=== PATIENT | male | born 1995 | race Caucasian/White ===

== ENCOUNTER 2017-04-15 09:46 | Day surgery (SDC) | payer OTHER ==
--- NOTE | 2017-04-14 12:42 | RADIOLOGY REPORT (SQ) ---
EXAM DESCRIPTION: CHEST PA/LATERAL COMPLETED DATE/TIME: 04/14/2017 12:04 pm REASON FOR STUDY: PRE OP COMPARISON: None. EXAM PARAMETERS: NUMBER OF VIEWS: two views TECHNIQUE: Digital Frontal and Lateral radiographic views of the chest acquired. RADIATION DOSE: NA LIMITATIONS: none FINDINGS: LUNGS AND PLEURA: No opacities, masses or pneumothorax. No pleural effusion. MEDIASTINUM AND HILAR STRUCTURES: No masses or contour abnormalities. HEART AND VASCULAR STRUCTURES: Heart normal size. No evidence for failure. BONES: No acute findings. HARDWARE: None in the chest. OTHER: No other significant finding. IMPRESSION: NO SIGNIFICANT RADIOGRAPHIC FINDING IN THE CHEST. TECHNICAL DOCUMENTATION: JOB ID: [id number] [employer]- All Rights Reserved
[2017-04-14 13:00] LABS: APPEARANCE,URINE CLEAR; BILIRUBIN,URINE NEGATIVE (NEGATIVE); GLUCOSE, URINE NEGATIVE (NEGATIVE); KETONES,URINE NEGATIVE (NEGATIVE); LEUKOCYTE ESTERASE,URINE NEGATIVE (NEGATIVE); NITRITE,URINE NEGATIVE (NEGATIVE); PROTEIN,URINE NEGATIVE (NEGATIVE); URINE SPECIFIC GRAVITY 1.015; UROBILINOGEN,URINE NEGATIVE mg/dL (<2.0)
[2017-04-14 13:11] LABS: ABSOLUTE BASOPHILS # (AUTO) 0.1 10^3/uL (0.0-0.2); ABSOLUTE EOSINOPHILS # (AUTO) 0.2 10^3/uL (0.0-0.6); ABSOLUTE LYMPHOCYTES (AUTO) 2.1 10^3/uL (0.5-4.7); ABSOLUTE MONOCYTES (AUTO) 0.6 10^3/uL (0.1-1.4); ABSOLUTE NEUT (AUTO) 5.8 10^3/uL (1.7-8.2); BASOPHILS % (AUTO) 0.9 % (0-2); EOSINOPHILS % (AUTO) 2.5 % (0-6); HEMATOCRIT 46.7 % (37.9-51.0); HEMOGLOBIN 15.6 g/dL (13.5-17.0); HGB HCT DIFFERENCE 0.1; LYMPHOCYTES % (AUTO) 23.9 % (13-45); MEAN CORPUSCULAR HEMOGLOBIN 30.2 pg (27.0-33.4); MEAN CORPUSCULAR HGB CONC 33.4 g/dL (32.0-36.0); MEAN CORPUSCULAR VOLUME 90 fl (80-97); MONOCYTES % (AUTO) 7.3 % (3-13); RED BLOOD COUNT 5.17 10^6/uL (4.35-5.55); RED CELL DISTRIBUTION WIDTH 13.1 % (11.5-14.0); SEGMENTED NEUTROPHILS % (AUTO) 65.4 % (42-78); WHITE BLOOD COUNT 8.8 10^3/uL (4.0-10.5)
[2017-04-14 13:39] LABS: ANION GAP 12 (5-19); BLOOD UREA NITROGEN 13 mg/dL (7-20); CARBON DIOXIDE 27 mmol/L (22-30); CHLORIDE 103 mmol/L (98-107); CREATININE RESULT 0.78 mg/dL (0.52-1.25); GLUCOSE 76 mg/dL (75-110); POTASSIUM 4.6 mmol/L (3.6-5.0); SODIUM 141.8 mmol/L (137-145)
--- NOTE | 2017-04-14 17:55 | EKG REPORT ---
SEVERITY:- NORMAL ECG - SINUS RHYTHM : Confirmed by: Elsa Diehl MD 14-Apr-2017 17:54:59
[~2017-04-15 09:46] MED LIST: BUPIVACAINE HCL 0.5 % INJ/PF 30 ML SDV ONE; CEFAZOLIN 2 GM/D5W RTU 2 GM/50 ML RTUPB IV PRN; LACTATED RINGERS 1000 ML IV PRN
[2017-04-15] MEDS ORDERED: ROCURONIUM BROMIDE INJ 50 MG/5 ML VIAL IV ONE (10:09)
[2017-04-15] MEDS ORDERED: ONDANSETRON HCL INJ/PF 4 MG/2 ML SDV ONE (10:09)
[2017-04-15] MEDS ORDERED: LIDOCAINE 2% INJ-PF (20 MG/ML) 10 ML AMPUL ONE (10:09)
[2017-04-15] MEDS ORDERED: METOCLOPRAMIDE HCL INJ/PF 10 MG/2 ML SDV ONE (10:09)
[2017-04-15] MEDS ORDERED: NEOSTIGMINE METHYLSULFATE 10 MG/10 ML VIAL ONE (10:09)
[2017-04-15] MEDS ORDERED: GLYCOPYRROLATE INJ 0.4 MG/2 ML VIAL ONE (10:09)
[2017-04-15] MEDS ORDERED: SUCCINYLCHOLINE CHLORIDE INJ 200 MG/10 ML VIAL ONE (10:09)
[2017-04-15] MEDS ORDERED: ALBUTEROL SULFATE 0.083% NEB 2.5 MG/3 ML AMPUL NEB ONE (10:40)
[2017-04-15] MEDS ORDERED: RINGERS SOLUTION,LACTATED 500 ML IV ONE (11:00)
[2017-04-15] MEDS ORDERED: MIDAZOLAM 2 MG/2 ML INJ ONE (12:49)
[2017-04-15] MEDS ORDERED: PROPOFOL INJ 200 MG/20 ML VIAL IV ONE (12:49)
[2017-04-15] MEDS ORDERED: IBUPROFEN INJ 800 MG/8 ML VIAL IV ONE (12:49)
[2017-04-15] MEDS ORDERED: FENTANYL CITRATE INJ/PF 250 MCG/5 ML AMPULE ONE (12:49)
[2017-04-15] MEDS ORDERED: MORPHINE SULFATE 10 MG/ML INJ ONE (12:50)
[2017-04-15] MEDS ORDERED: FENTANYL CITRATE INJ/PF 100 MCG/2 ML AMPUL IV PRN ×3 (13:28)
[2017-04-15] MEDS ORDERED: MORPHINE SULFATE 10 MG/ML INJ IV PRN (13:28)
[2017-04-15] MEDS ORDERED: PROMETHAZINE HCL INJ 25 MG/1 ML VIAL IV PRN ×2 (13:28)
[2017-04-15] MEDS ORDERED: MEPERIDINE HCL/PF INJ 25 MG/1 ML DISP.SYRIN IV PRN (13:28)
[2017-04-15] MEDS ORDERED: DIPHENHYDRAMINE HCL 50 MG/ML VIAL IV PRN (13:28)
[2017-04-15] MEDS ORDERED: ONDANSETRON HCL INJ/PF 4 MG/2 ML SDV IV PRN (13:28)
[2017-04-15] MEDS ORDERED: OXYCODONE-ACETAMINOPHEN 5-325 MG TABLET PO PRN ×2 (13:28)
--- NOTE | 2017-04-15 15:00 | Operative Report ---
Operative Report DATE OF SURGERY: 04/15/17 PREOPERATIVE DIAGNOSIS: Left Index Finger Digital Nerve Laceration POSTOPERATIVE DIAGNOSIS: Same OPERATION: Left Index Radial Digital Nerve Repair Utilizing Nerve Allograft SURGEON: ALINA LINK ANESTHESIA: GA COMPLICATIONS: None ESTIMATED BLOOD LOSS: minimal INTRAOPERATIVE FINDINGS: 15 mm nerve Radial digital nerve index finger PROCEDURE: Indication for above procedure: 21-year-old male he inadvertently sustained a small laceration on the palm of his hand. Since the date of injury continue to have numbness and tingling. He subsequently followed up at my office at which point he had findings such as a Tinel's and a numbness which indicated possible digital nerve injury. At that point we discussed treatment options including observation versus operative intervention. After discussing risks and benefits of both the decision was made to proceed with operative treatment. Procedure In Detail: Patient was seen and evaluated in the preoperative holding area. The left upper extremity was initialized and marked. Patient received 2g of Ancef IV for bacterial prophylaxis. Patient was taken back to the operative room where transferred to the operative table and placed under general anesthesia. Once they were adequately anesthetized a nonsterile tourniquet was placed on the upper extremity. A surgical team debriefing was performed ensuring all instrumentation was available, the surgical procedure was discussed with possible concerns reviewed. The upper extremity was prepped with chlorhexidine and alcohol and draped in a sterile fashion. A timeout was done identifying correct patient, procedure and extremity everyone in attendance agree with this and verbalized no concerns. The extremity was exsanguinated the tourniquet was inflated to 250 mmHg. Kimberly's shaped skin incision was made along patient's previous laceration proximally and distally. Blunt dissection was performed to the soft tissue. A peripheral vasculature was carefully coagulated bipolar cautery. The radial digital nerve of the index finger was then identified. It was split into 2 branches and a neuroma was identified. The skin was retracted and secured with a 4-0 nylon suture. I then proceeded with exploration of the distal stump. The distal stump was identified deep to Melvin's ligament which was released the neurovascular bundle was identified. Radial digital artery remains patent. I then carefully debrided the distal aspect of the radial digital nerve of the index finger. The microscope was then utilized to further evaluate fascicles of the proximal distal aspect of the radial digital nerve. Appropriate resection was completed confirming normal-appearing fascicles proximally and distally. The nerve measured 3 mm in diameter with a nerve gap of 15 mm. A 3-4 x 30 mm AVANCE nerve graft was then opened and placed in saline on the back table. A 3 mm x 15 mm nerve connector was also open and placed in saline. The nerve connector was split and placed onto the nerve graft to allow for protection of the repair. Under microscope magnification I then secured the proximal aspect of my nerve graft and the proximal nerve stump with 8-0 nylon suture aligning these fascicles. I then secured the nerve graft to the distal aspect of my digital nerve with an additional two sutures. During repair attempted to match the fascicles to promote nerve healing. With the use of the allograft I was able to perform a tensionless repair. There is no elongation of my repair site during full passive flexion and extension of the index finger. I then further secured the proximal distal repair site with Tisseel fibrin glue. The repair sites were then protected with the nerve tube which was secured with an 8-0 nylon suture. Once repair was complete I once again performed full passive motion of the index finger with the wrist in flexion extension there is no evidence of gapping at the repair site and attention was repair was confirmed. Any peripheral vasculature was coagulated bipolar cautery. The wound was copiously irrigated with normal saline. Skin edges were closed with interrupted 4-0 nylon suture. 20 cc of 0.5% Marcaine without epinephrine was injected for postoperative pain control. Wound was dressed Xeroform 4 x 4's and a dorsal blocking splint with the wrist at 20 of extension MP joints at 20 of flexion and the IP joint in neutral position. Sponge counts, instrument counts, needle counts counts were correct. Patient was then awoken from anesthesia. Transferred from the operating room table to the operating room stretcher. There was no intraoperative complications patient tolerated procedure well stable to PACU. Postoperative plan: Patient will follow-up in the office in 10-14 days for wound check. We will set him up for occupational therapy on the date of his follow-up to be fitted for a thermoplastic splint.
--- NOTE | 2017-04-15 15:15 | PDOC DISCHARGE SUMMARY ---
Discharge Summary (SDC) - Discharge Final Diagnosis: Left Index Digital Nerve Laceration Date of Surgery: 04/15/17 Discharge Date: 04/15/17 Condition: Good Treatment or Instructions: Schedule Follow Up w/ Dr. Steven Negron @ [facility] to be seen in 10-14 days or as scheduled [place]: Echo: [place]: May remove dressing on postop day #3, keep incision covered and dry. Ice and elevate May begin finger range of motion attempting to make full fist. Stool softener of choice when on pain medication. Prescriptions: Oxycodone HCl/Acetaminophen [Percocet 5-325 mg Tablet] 1 - 2 tab PO ASDIR PRN # 40 tablet PRN Reason: Discharge Diet: As Tolerated Respiratory Treatments at Home: Deep Breathing/Coughing Discharge Activity: No Lifting Over 10 Pounds, No Lifting/Push/Pulling Report the Following to Your Physician Immediately: Fever over 101 Degrees, Unusual Bleeding, Redness, Swelling, Warmth
[2017-04-15 16:44] VITALS: BP 130/81
== END 2017-04-15 16:40 | disposition home or self-care (01) ==
LOC: OROUT 09:46
PROVIDERS: ATTEND Orthopaedic Surgery
PROC: 01Q60ZZ Repair Radial Nerve, Open Approach (ICD-10-PCS; principal; 2017-04-15 11:30)
DX: S64.491A Injury of digital nerve of left index finger, initial encounter (principal); S61.211A Laceration without foreign body of left index finger without damage to nail, initial encounter; W26.0XXA Contact with knife, initial encounter; M79.645 Pain in left finger(s); F17.210 Nicotine dependence, cigarettes, uncomplicated; Z79.899 Other long term (current) drug therapy
CPT/HCPCS: 93005; 36415; 85025; 80048; 81001; 71020; 93010; 94640; 64910; J2250; J3490 ×2; J3010; J2765; J2270; J0330; J2405; J2704; J0690; J1741; 1810